=== PATIENT | male | born 1975 | race Caucasian/White ===

== ENCOUNTER 2023-10-30 05:35 | Emergency (ER) | payer OTHER ==
[2023-10-30 06:00] VITALS: RESP 18
--- NOTE | 2023-10-30 06:22 | ED ---
GI Bleed HPI - General Chief complaint: GI Bleed Stated complaint: ABD Pain Time Seen by Provider: 10/30/23 05:52 Source: patient, RN notes reviewed Mode of arrival: ambulatory Limitations: no limitations - History of Present Illness Initial comments: 48-year-old male presents emergency department with chief complaint of abdominal pain. Patient states that started over the weekend and after moving several objects. States that he does have a known hernia and has already had a prior hernia repair with mesh. Patient states that he had increasing pain until this morning he noticed some bright red blood within his stool. He denies any blood thinners. Patient states he did have some discomfort with his bowel movement. Patient denies any fevers or chills no chest pain no flank pain. - Related Data Allergies Allergy/AdvReac Type Severity Reaction Status Date / Time No Known Allergies Allergy Verified 10/30/23 05:41 Review of Systems ROS Statement: Those systems with pertinent positive or pertinent negative responses have been documented in the HPI. ROS Other: All systems not noted in ROS Statement are negative. Past Medical History Past Medical History: Asthma, Seizure Disorder History of Any Multi-Drug Resistant Organisms: None Reported Past Surgical History: Hernia Repair Past Psychological History: Anxiety Smoking Status: Vaper Past Alcohol Use History: None Reported Past Drug Use History: None Reported General Exam Limitations: no limitations General appearance: alert, in no apparent distress Head exam: Present: atraumatic, normocephalic, normal inspection Eye exam: Present: normal appearance, PERRL, EOMI. Absent: scleral icterus, conjunctival injection, periorbital swelling Respiratory exam: Present: normal lung sounds bilaterally. Absent: respiratory distress, wheezes, rales, rhonchi, stridor Cardiovascular Exam: Present: regular rate, normal rhythm, normal heart sounds. Absent: systolic murmur, diastolic murmur, rubs, gallop, clicks GI/Abdominal exam: Present: soft, tenderness (Minimal), normal bowel sounds, hernia (Reducible hernia noted). Absent: distended, guarding, rebound, rigid Back exam: Absent: CVA tenderness (R), CVA tenderness (L) Neurological exam: Present: alert Skin exam: Present: warm, dry, intact, normal color. Absent: rash Course Vital Signs 10/30/23 10/30/23 05:38 07:31 Temperature 97.8 F 98 F Pulse Rate 95 91 Respiratory 18 18 Rate Blood Pressure 146/78 138/79 O2 Sat by Pulse 98 98 Oximetry Medical Decision Making - Medical Decision Making Was pt. sent in by a medical professional or institution ([facility], [facility], urgent care, hospital, or [facility]...) When possible be specific @ -No Did you speak to anyone other than the patient for history (EMS, parent, family, police, friend...)? What history was obtained from this source @ -No Did you review nursing and triage notes (agree or disagree)? Why? @ -I reviewed and agree with nursing and triage notes Were old charts reviewed (outside hosp., previous admission, EMS record, old EKG, old radiological studies, urgent care reports/EKG's, [facility] records)? Report findings @ -No old charts were reviewed Differential Diagnosis (chest pain, altered mental status, abdominal pain women, abdominal pain men, vaginal bleeding, weakness, fever, dyspnea, syncope, headache, dizziness, GI bleed, back pain, seizure, CVA, palpatations, mental health, musculoskeletal)? @ -Differential Abdominal Pain Men: Appendicitis, cholecystitis, diverticulosis, ischemic bowel, pancreatitis, hepatitis, UTI, gastroenteritis, AAA, incarcerated hernia, bowel obstruction, constipation, inflammatory bowel, hepatitis, peptic ulcer disease, splenic infa rction, perforated viscus, testicular torsion, this is not meant to be an all- inclusive list EKG interpreted by me (3pts min.). @ -[None X-rays interpreted by me (1pt min.). @ -None done CT interpreted by me (1pt min.). @ -See the abdomen pelvis showing evidence of umbilical fat-containing hernia o therwise no acute process U/S interpreted by me (1pt. min.). @ -None done What testing was considered but not performed or refused? (CT, X-rays, U/S, labs)? Why? @ -None What meds were considered but not given or refused? Why? @ -None Did you discuss the management of the patient with other professionals (professionals i.e. [facility], [facility], lab, RT, psych nurse, social media designer, nut culler, teacher, animal park code enforcement officer, caser)? Give summary @ -No Was smoking cessation discussed for >3mins.? @ -No Was critical care preformed (if so, how long)? @ -No Were there social determinants of health that impacted care today? How? (Homelessness, low income, unemployed, alcoholism, drug addiction, transportation, low edu. Level, literacy, decrease access to med. care, halfway, rehab)? @ -No Was there de-escalation of care discussed even if they declined (Discuss DNR or withdrawal of care, Hospice)? DNR status @ -No What co-morbidities impacted this encounter? (DM, HTN, Smoking, COPD, CAD, Cancer, CVA, ARF, Chemo, Hep., AIDS, mental health diagnosis, sleep apnea, morbid obesity)? @ -None Was patient admitted / discharged? Hospital course, mention meds given and route, prescriptions, significant lab abnormalities, going to OR and other pertinent info. @ -Discharge patient return for abdominal pain. Workup including labs and CT show evidence of fat-containing hernia which is reducible patient has no current complaints of abdominal pain no recurrent rectal bleeding hemoglobin is stable he will follow-up with colonoscopy with surgeon/GI return for as discussed Undiagnosed new problem with uncertain prognosis? @ -No Drug Therapy requiring intensive monitoring for toxicity (Heparin, Nitro, Insulin, Cardizem)? @ -No Were any procedures done? @ -No Diagnosis/symptom? @ -[Abdominal pain, umbilical hernia Acute, or Chronic, or Acute on Chronic? @ -Acute Uncomplicated (without systemic symptoms) or Complicated (systemic symptoms)? @ -Uncomplicated Side effects of treatment? @ -No Exacerbation, Progression, or Severe Exacerbation? @ -No Poses a threat to life or bodily function? How? (Chest pain, [place], [place], pneumonia, PE, COPD, DKA, ARF, appy, cholecystitis, CVA, Diverticulitis, Homicidal, Suicidal, threat to staff... and all critical care pts) @ -No - Lab Data Result diagrams: 10/30/23 06:28 10/30/23 06:28 Lab Results 10/30/23 10/30/23 10/30/23 Range/Units 06:28 06:28 06:28 WBC 7.6 (3.8-10.6) k/uL RBC 5.33 (4.30-5.90) m/uL Hgb 15.7 (13.0-17.5) gm/dL Hct 49.1 (39.0-53.0) % MCV 92.2 (80.0-100.0) fL MCH 29.5 (25.0-35.0) pg MCHC 32.0 (31.0-37.0) g/dL RDW 12.9 (11.5-15.5) % Plt Count 285 (150-450) k/uL MPV 7.8 Neutrophils % 65 % Lymphocytes % 20 % Monocytes % 7 % Eosinophils % 4 % Basophils % 1 % Neutrophils # 4.9 (1.3-7.7) k/uL Lymphocytes # 1.5 (1.0-4.8) k/uL Monocytes # 0.6 (0-1.0) k/uL Eosinophils # 0.3 (0-0.7) k/uL Basophils # 0.1 (0-0.2) k/uL Sodium 139 (137-145) mmol/L Potassium 3.8 (3.5-5.1) mmol/L Chloride 110 H (98-107) mmol/L Carbon Dioxide 21 L (22-30) mmol/L Anion Gap 8 mmol/L BUN 12 (9-20) mg/dL Creatinine 0.81 (0.66-1.25) mg/dL Est GFR (CKD-EPI)AfAm >90 (>60 ml/min/1.73 sqM) Est GFR (CKD-EPI)NonAf >90 (>60 ml/min/1.73 sqM) Glucose 121 H (74-99) mg/dL Plasma Lactic Acid Peña 2.7 H* (0.7-2.0) mmol/L Calcium 8.9 (8.4-10.2) mg/dL Total Bilirubin 0.6 (0.2-1.3) mg/dL AST 22 (17-59) U/L ALT 26 (4-49) U/L Alkaline Phosphatase 59 (38-126) U/L Total Protein 6.7 (6.3-8.2) g/dL Albumin 3.9 (3.5-5.0) g/dL Disposition Clinical Impression: Rectal bleeding, Abdominal hernia Disposition: HOME SELF-CARE Condition: Stable Instructions (If sedation given, give patient instructions): Gastrointestinal Bleeding (ED) Additional Instructions: Please return to the Emergency Department if symptoms worsen or any other concerns. Is patient prescribed a controlled substance at d/c from ED?: No Referrals: None,Stated [Primary Care Provider] - 1-2 days Richard Villa MD [STAFF PHYSICIAN] - 1-2 days Ariadna Mendez MD [STAFF PHYSICIAN] - 1-2 days
[2023-10-30 06:39] LABS: Basophils # (A) 0.1 k/uL (0-0.2); Basophils % (A) 1 %; Eosinophils # (A) 0.3 k/uL (0-0.7); Eosinophils % (A) 4 %; HCT 49.1 % (39.0-53.0); HGB 15.7 gm/dL (13.0-17.5); Lymphocytes # (A) 1.5 k/uL (1.0-4.8); Lymphocytes % (A) 20 %; MCH 29.5 pg (25.0-35.0); MCV 92.2 fL (80.0-100.0); Mean Platelet Volume 7.8; Monocytes # (A) 0.6 k/uL (0-1.0); Monocytes % (A) 7 %; Neutrophils # (A) 4.9 k/uL (1.3-7.7); Neutrophils % (A) 65 %; Platelet Count 285 k/uL (150-450); RBC 5.33 m/uL (4.30-5.90); RDW 12.9 % (11.5-15.5); WBC 7.6 k/uL (3.8-10.6)
[2023-10-30 06:53] LABS: ALT 26 U/L (4-49); AST 22 U/L (17-59); African American GFR (CKD) >90 (>60 ml/min/1.73 sqM); Albumin 3.9 g/dL (3.5-5.0); Alkaline Phosphatase 59 U/L (38-126); Anion Gap 8 mmol/L; Blood Urea Nitrogen 12 mg/dL (9-20); Calcium 8.9 mg/dL (8.4-10.2); Carbon Dioxide 21 mmol/L (22-30); Chloride 110 mmol/L (98-107); Glucose 121 mg/dL (74-99); Non-African American GFR(CKD) >90 (>60 ml/min/1.73 sqM); Potassium 3.8 mmol/L (3.5-5.1); Sodium 139 mmol/L (137-145); Total Bilirubin 0.6 mg/dL (0.2-1.3); Total Protein 6.7 g/dL (6.3-8.2)
[2023-10-30] MEDS: SODIUM CHLORIDE 0.9% 500 ML 500 ML IV STA (07:02)
--- NOTE | 2023-10-30 07:25 | CT ---
EXAMINATION TYPE: CT abdomen pelvis w con DATE OF EXAM: 10/30/2023 COMPARISON: None HISTORY: hernia, lower abd pain, blood in stool CT DLP: 2320.7 mGycm CONTRAST: CT scan of the abdomen and pelvis is performed without Oral Contrast and with IV Contrast, patient in jected with 100 mL of Isovue 300. FINDINGS: LUNG BASES-: No visible nodule. No infiltrate. LIVER/GB: No calcified gallstones. 1.2 cm cyst left hepatic lobe. Subcentimeter cyst anterior segme nt right hepatic lobe. Additional subcentimeter cysts within the right hepatic lobe. Biliary tree is of normal caliber. PANCREAS: No inflammation. No distinct mass. SPLEEN: No splenic enlargement. No lesion seen. ADRENALS: No nodule. No thickening. KIDNEYS/BLADDER: No hydronephrosis. No nephrolithiasis. No distinct renal mass. Urinary bladder po jazmin distended. Question wall thickening. Urachal remnant suggested. BOWEL: Normal appendix. Normal bowel caliber. No inflammation. GENITAL ORGANS: No gross abnormality. LYMPH NODES: No greater than 1cm abdominal or pelvic lymph nodes are appreciated. AORTA: No significant abnormality. OSSEOUS STRUCTURES: No significant abnormality is seen. OTHER: 4.1 x 4.0 cm fat-containing umbilical hernia. IMPRESSION: 1. Urinary bladder poorly distended. Question wall thickening. Urachal remnant suggested. 2. Fat-containing umbilical hernia.
[2023-10-30 08:11] VITALS: BP 138/79; PULSE 91; TEMP 98
== END 2023-10-30 08:05 | disposition home or self-care (01) ==
LOC: EC 05:35
DX: K42.9 Umbilical hernia without obstruction or gangrene (principal); K62.5 Hemorrhage of anus and rectum; F17.290 Nicotine dependence, other tobacco product, uncomplicated
CPT/HCPCS: 36415; 80053; 83605; 85025; 74177; 99285; Q9967

== ENCOUNTER 2023-11-15 07:40 | Day surgery (SDC) | payer OTHER ==
[2023-11-15] MEDS: LACTATED RINGERS 1,000 ML IV SCH (08:41)
[2023-11-15 09:07] VITALS: TEMP 97.2
[2023-11-15] MEDS ORDERED: PROPOFOL 10 MG/ML 20 ML VIAL IV ONE (09:18)
--- NOTE | 2023-11-15 09:43 | P.OP ---
Date of Procedure: 11/15/23 Preoperative Diagnosis: GI bleed Postoperative Diagnosis: internal and external hemorrhoids Procedure(s) Performed: colonoscopy Anesthesia: MAC Surgeon: Richard Villa Pathology: none sent Condition: stable Disposition: PACU Description of Procedure: the patient's placed on the endoscopy table in the lateral position. He received IV sedation. Digital rectal exam is performed. There were internal and external hemorrhoids. The flexible colonoscope was then placed throughout the entire colon. The ileocecal valve was visualized. The cecum, ascending and transverse colon appeared normal. The descending and sigmoid colon appeared normal. Scope was then brought out through the rectum and this appeared normal. Scope withdrawn through the anus and internal/external hemorrhoids noted. Scope was withdrawn for patient. His presumed the patient had bleeding from hemorrhoids.
[2023-11-15 10:37] LABS: Basophils # (A) 0.1 k/uL (0-0.2); Basophils % (A) 1 %; Eosinophils # (A) 0.2 k/uL (0-0.7); Eosinophils % (A) 3 %; HCT 48.5 % (39.0-53.0); Lymphocytes # (A) 1.5 k/uL (1.0-4.8); Lymphocytes % (A) 21 %; MCH 29.9 pg (25.0-35.0); MCV 90.5 fL (80.0-100.0); Monocytes # (A) 0.6 k/uL (0-1.0); Monocytes % (A) 8 %; Neutrophils # (A) 4.8 k/uL (1.3-7.7); Neutrophils % (A) 64 %; Platelet Count 301 k/uL (150-450); RBC 5.36 m/uL (4.30-5.90); WBC 7.5 k/uL (3.8-10.6)
[2023-11-15 10:41] VITALS: BP 114/59; PULSE 74; RESP 16
== END 2023-11-15 11:14 | disposition home or self-care (01) ==
LOC: ORWHC2ENDO 07:40
PROVIDERS: ATTEND Surgery
DX: K92.2 Gastrointestinal hemorrhage, unspecified (principal); K64.8 Other hemorrhoids; K64.4 Residual hemorrhoidal skin tags; I10 Essential (primary) hypertension; J45.909 Unspecified asthma, uncomplicated; F41.9 Anxiety disorder, unspecified; G40.909 Epilepsy, unspecified, not intractable, without status epilepticus; Z79.899 Other long term (current) drug therapy; Z98.890 Other specified postprocedural states
CPT/HCPCS: 86900; 86901; 85025; 86850; 45378; J2704

== ENCOUNTER 2023-11-20 05:38 | Day surgery (SDC) | payer OTHER ==
[2023-11-20] MEDS ORDERED: LIDOCAINE 1% (10MG/ML) FOR IV START INTRADERMA PRN (06:21)
[2023-11-20] MEDS: ONDANSETRON 4 MG/2 ML VIAL IVP ONE ×2 (06:30→10:51)
[2023-11-20] MEDS: LACTATED RINGERS 1,000 ML IV SCH (06:30)
[2023-11-20] MEDS: DEXAMETHASONE SOD PHOSPHATE 4 MG/ML 1 ML VIAL IV ONE (06:30)
[2023-11-20] MEDS: MIDAZOLAM 2 MG/2 ML VIAL IVP ONE (06:56)
[2023-11-20] MEDS ORDERED: MIDAZOLAM 2 MG/2 ML VIAL IV PRN (07:00)
--- NOTE | 2023-11-20 07:13 | P.ANPRN ---
Procedure Note - Anesthesia - Nerve Block Performed Bilateral Erector Spinae Single Time Out Performed: Yes Date of Procedure: 11/20/23 Procedure Start Time: 06:55 Procedure Stop Time: 07:00 Location of Patient: PreOp Indication: Acute Post-Operative Pain, Analgesia, Requested by Surgeon Sedation Type: Sedate with meaningful contact maintained Preparation: Sterile Prep Position: Prone Catheter: None Needle Types: Pajunk Needle Gauge: 21 Ultrasound used to visualize needle placement: Yes Ultrasound used to observe medication spread: Yes Injectate: 0.5% Ropivacaine (see comment for volume) (Ropiv 20ml + Decadron 4mg---Each side. AttemptX1) Blood Aspirated: No Pain Paresthesia on Injection Noted: No Resistance on Injection: Normal Image Stored and Saved: Yes Events: Uneventful and Well Tolerated
[2023-11-20] MEDS: HEPARIN SODIUM,PORCINE 5,000 UNIT/ML 1 ML VIAL SQ PRN (07:15)
[2023-11-20] MEDS: ACETAMINOPHEN TAB 500 MG TAB PO PRN (07:15)
[2023-11-20] MEDS ORDERED: fentaNYL (PF) 50 MCG/ML 2 ML AMP ONE (07:29)
[2023-11-20] MEDS ORDERED: ROCURONIUM 10 MG/ML (5 ML VIAL) IV ONE (07:29)
[2023-11-20] MEDS ORDERED: PROPOFOL 10 MG/ML 20 ML VIAL IV ONE (07:29)
[2023-11-20] MEDS ORDERED: ROPIVACAINE 5 MG/ML 30 ML VIAL ONE (07:29)
[2023-11-20] MEDS ORDERED: LIDOCAINE 1% INJ 10MG/ML (20 ML MDV) ONE (07:29)
[2023-11-20] MEDS ORDERED: DEXAMETHASONE SOD PHOSPHATE 4 MG/ML 1 ML VIAL ONE (07:29)
[2023-11-20] MEDS ORDERED: NEOSTIGMINE 1 MG/ML 10 ML VIAL ONE (07:29)
[2023-11-20] MEDS ORDERED: GLYCOPYRROLATE 0.2 MG/ML 2 ML VIAL ONE (07:29)
[2023-11-20] MEDS ORDERED: SUCCINYLCHOLINE CHLORIDE 200 MG/10 ML VIAL IV ONE (07:29)
[2023-11-20] MEDS ORDERED: KETOROLAC 15 MG/ML 1 ML VIAL ONE (07:29)
[2023-11-20] MEDS: ceFAZolin 3 GM in SODIUM CHLORIDE 0.9% 100 ML IVPB PRN (07:34)
[2023-11-20] MEDS: LIDOCAINE 1%-EPI 1:100,000 20 ML VIAL SQ ONE (07:51)
--- NOTE | 2023-11-20 08:47 | P.OP ---
Date of Procedure: 11/20/23 Preoperative Diagnosis: incarcerated incisional hernia Postoperative Diagnosis: incarcerated incisional hernia Procedure(s) Performed: laparoscopic robotic-assistedrepair of incarcerated incisional hernia Transverse abdominal pain block Partial omentectomy Anesthesia: SHORTY Surgeon: Richard Villa Estimated Blood Loss (ml): 5 Pathology: other (omentum) Condition: stable Disposition: PACU Description of Procedure: The patient was placed on the operating table in the supine position. He received general anesthesia. His abdomen was prepped and draped usual fashion. Using a 5 mm optical trocar under direct visualization the peritoneal cavity was entered in the left upper quadrant. The abdomen was then insufflated. The laparoscope was placed back into the perineal cavity. Next a 8 mm robotic trocar was placed in the left lower quadrant and a 12 mm robotic trocar was placed in the left lateral position. The original 5 mm trocar was exchanged for a 8 mm robotic trocar. A four-quadrant transverse subcostal blocks performed 1% local Xylocaine. The patient's placed in the left side up position. And the patient was docked to the robot. The incisional hernia was visualized. Using hook cautery the peritoneum over the incisional hernia was excised. incarcerated omentum was dissected free. A portion of omentum was sent to pathology.The fascial opening was repaired using 0V LOC suture. Next a piece of 11 cm round ventral light ST mesh was placed in to the. Cavity and secured with 2 OV lock suture. The patient was undocked the robot. The needles were retrieved. The fascia of the 12 mm trocar site was closed with 0 Ethibond suture. Skin was closed interrupted 3-0 Monocryl suture. Dermabond dressings was applied. Patient tolerated procedure well and was sent to recovery room stable condition.
[2023-11-20 09:14] VITALS: TEMP 97.2
[2023-11-20] MEDS: HYDROmorphone 0.5 MG/0.5 ML SYRINGE IVP PRN (09:42)
[2023-11-20] MEDS: LACTATED RINGERS 1,000 ML IV ONE (10:30)
[2023-11-20] MEDS ORDERED: ONDANSETRON 4 MG/2 ML VIAL ONE (10:48)
[2023-11-20] MEDS: HYDROmorphone 1 MG/ML 1 ML SYRINGE IVP ONE (11:08)
[2023-11-20 11:15] VITALS: RESP 14
[2023-11-20 12:09] VITALS: BP 128/57; PULSE 65
== END 2023-11-20 12:25 | disposition home or self-care (01) ==
LOC: OR 05:38
PROVIDERS: ATTEND Surgery
DX: K43.0 Incisional hernia with obstruction, without gangrene (principal); G89.18 Other acute postprocedural pain; I10 Essential (primary) hypertension; E78.5 Hyperlipidemia, unspecified; J45.909 Unspecified asthma, uncomplicated; G40.909 Epilepsy, unspecified, not intractable, without status epilepticus; Z79.899 Other long term (current) drug therapy; Z98.890 Other specified postprocedural states
CPT/HCPCS: 49592; S2900; 64999; 88305